=== PATIENT | female | born 1975 | race African-American/Black ===

== ENCOUNTER 2017-04-20 00:58 | Emergency (ER) | payer MEDICAID ==
[~2017-04-20] VITALS: Ht 167.6 cm; Wt 96.0 kg
[~2017-04-20 00:58] MED LIST: MARIJUANA
[2017-04-20] MEDS ORDERED: SODIUM CHLORIDE 0.9% 1,000 ML IV ONE (01:48)
[2017-04-20] MEDS ORDERED: ONDANSETRON HCL 4MG/2ML VIAL IV STA (01:48)
[2017-04-20] MEDS ORDERED: MORPHINE SULFATE 4 MG/ML CPJ (NOT FOR IM USE) IV STA (01:48)
[2017-04-20 02:22] LABS: BASOPHILS % 0.7 % (0.0-2.0); EOSINOPHILS % 1.3 % (0.0-5.0); HEMATOCRIT. 39.6 % (36.0-48.0); LYMPHOCYTES % 23.5 % (20.0-50.0); MEAN CORPUSCULAR HEMOGLOBIN 28.9 pg (28.0-32.0); MEAN CORPUSCULAR VOLUME 88.1 fL (81.0-99.0); MEAN PLATELET VOLUME 8.1 fl (7.4-10.4); MONOCYTES % 5.2 % (2.0-8.0); NEUTROPHILS % 69.3 % (40.0-76.0); PLATELET 270 x1000/uL (130-400); RED BLOOD CELL COUNT 4.49 mill/uL (4.2-5.4); RED CELL DISTRIBUTION WIDTH 12.9 % (11.6-14.6)
[2017-04-20 02:23] LABS: CHLORIDE 104 mEq/L (98-107)
[2017-04-20 02:29] LABS: CARBON DIOXIDE 28 mEq/L (21-32)
[2017-04-20] MEDS ORDERED: MORPHINE SULFATE 10 MG/ML CPJ IV SCH (03:45)
[2017-04-20] MEDS ORDERED: METOCLOPRAMIDE HCL 10MG/2ML VIAL IV SCH (03:45)
[2017-04-20 06:20] VITALS: BP 131/67
== END 2017-04-20 06:20 | disposition home or self-care (01) ==
LOC: ER 00:58
DX: R51 Headache (principal); R42 Dizziness and giddiness; Z88.0 Allergy status to penicillin
CPT/HCPCS: 36415; 70450; 80048; 85025; 96361; 96374; 96375; 96376; 99285; J2270; J2405; J2765; J7030; Z7610

== ENCOUNTER 2018-08-30 13:52 | Emergency (ER) | payer MEDICAID ==
[~2018-08-30] VITALS: Ht 165.1 cm; Wt 95.0 kg
[2018-08-30 15:51] VITALS: BP 119/82
== END 2018-08-30 15:53 | disposition home or self-care (01) ==
LOC: ER 13:52
DX: Z00.8 Encounter for other general examination (principal); Z88.0 Allergy status to penicillin; Z88.5 Allergy status to narcotic agent; Z88.6 Allergy status to analgesic agent
CPT/HCPCS: 99281

== ENCOUNTER 2018-08-30 21:36 | Emergency (ER) | payer MEDICAID | END 2018-08-30 22:53 | disposition left against medical advice (07) | LOC: ER 21:36 | DX: Z53.21 Procedure and treatment not carried out due to patient leaving prior to being seen by health care provider (principal) ==

== ENCOUNTER 2019-08-09 12:44 | Emergency (ER) | payer MEDICAID ==
[~2019-08-09] VITALS: Ht 165.1 cm; Wt 105.0 kg
[2019-08-09 15:31] LABS: BASOPHILS % 0.3 % (0.0-2.0); EOSINOPHILS % 1.2 % (0.0-5.0); HEMATOCRIT. 41.3 % (36.0-48.0); HEMOGLOBIN. 13.9 g/dL (12.0-16.0); LYMPHOCYTES % 22.9 % (20.0-50.0); MEAN CORPUSCULAR HEMOGLOBIN 29.9 pg (28.0-32.0); MEAN CORPUSCULAR VOLUME 89.2 fL (81.0-99.0); MONOCYTES % 5.6 % (2.0-8.0); PLATELET 291 x1000/uL (130-400); RED BLOOD CELL COUNT 4.63 mill/uL (4.2-5.4); RED CELL DISTRIBUTION WIDTH 12.8 % (11.6-14.6)
[2019-08-09 15:39] LABS: CHLORIDE 104 mEq/L (98-107)
[2019-08-09] MEDS ORDERED: ACETAMINOPHEN 500MG TABLET PO ONE (16:45)
[2019-08-09 16:46] VITALS: BP 148/87
== END 2019-08-09 17:02 | disposition home or self-care (01) ==
LOC: ER 12:44
DX: R07.9 Chest pain, unspecified (principal); Z88.0 Allergy status to penicillin; Z88.6 Allergy status to analgesic agent
CPT/HCPCS: 36415; 71045; 80053; 81025; 83880; 84484; 85025; 85379; 93005; 99285

== ENCOUNTER 2023-09-01 17:21 | Emergency (ER) | payer OTHER ==
[~2023-09-01] VITALS: Ht 167.6 cm; Wt 113.0 kg
[~2023-09-01 17:21] MED LIST changes: +ACET-2708 MT; +NITR100C MT
[2023-09-01 17:41] VITALS: BP 183/91; PULSE 76; TEMP 98.3; O2SAT 100
[2023-09-01] MEDS ORDERED: KETOROLAC 60MG/2ML VIAL IM ONE (19:45)
== END 2023-09-01 22:36 | disposition home or self-care (01) ==
LOC: ER 17:21
DX: M25.562 Pain in left knee (principal); Z88.0 Allergy status to penicillin
CPT/HCPCS: 73560; 73590; 73600; 99284